=== PATIENT | female | born 1970 | race American Indian/Alaskan Native ===

== ENCOUNTER 2016-09-22 13:29 | Outpatient (CLI) | payer OTHER ==
--- NOTE | 2016-09-23 08:37 | Mammography Report ---
BILATERAL DIGITAL SCREENING MAMMOGRAM with CAD: 09/22/16 13:29:00 CLINICAL: Baseline screening. FINDINGS: The breasts are heterogeneously dense, which may obscure small masses. Left asymmetries with architectural distortion require additional imaging.No suspicious calcifications.The right breast is negative. IMPRESSION: Left asymmetry and architectural distortion requiring further workup. BI-RADS CATEGORY: 0 -- Additional Imaging Evaluation Required RECOMMENDATION: Recall for left mediolateral , spot compression CC and MLO views and left breast ultrasound if needed. ACR BI-RADS MAMMOGRAPHIC CODES: 0 = Needs additional imaging evaluation; 1 = Negative; 2 = Benign; 3 = Probably benign; 4 = Suspicious; 5 = Malignant; 6 = Known biopsy-proven malignancy COMMENT: 1. Dense breast tissue, i.e., adenosis, fibrocystic changes, etc., may obscure an underlying neoplasm. 2. Approximately 10% of cancers are not detected with mammography. 3. A negative mammography report should not delay biopsy if a clinically suspicious mass is present. COMMENT: Patient follow-up letters are generated via our [employer] application.
== END 2016-09-22 13:30 | disposition home or self-care (01) ==
LOC: SPVWC 13:29
PROVIDERS: ATTEND Internal Medicine Hematology & Oncology
DX: Z12.31 Encounter for screening mammogram for malignant neoplasm of breast (principal)
CPT/HCPCS: 77067; G0202

== ENCOUNTER 2016-10-05 11:12 | Outpatient (CLI) | payer OTHER ==
--- NOTE | 2016-10-05 14:22 | Ultrasound Report ---
LEFT DIGITAL DIAGNOSTIC MAMMOGRAM and LEFT BREAST ULTRASOUND: 10/05/16 11:12:00 CLINICAL: Recalled for left asymmetries and architectural distortion. COMPARISON:09/22/16 screening FINDINGS: ML and spot compression MLO and CC views were performed. Partial effacement of asymmetry and architectural distortion. No suspicious finding on the lateral view. Ultrasound of the left breast (including all four quadrants and the retroareolar area) was performed and demonstrated normal fibroglandular structures with focal fibroglandular structures in the upper outer quadrant corresponding to the mammographic asymmetry. No mass, cyst or shadowing. IMPRESSION: Probably benign mammographic asymmetry with negative ultrasound. BI-RADS CATEGORY: 3 - - Probably Benign RECOMMENDATION: Six month followup left mammogram and left breast ultrasound if needed. ACR BI-RADS MAMMOGRAPHIC CODES: 0 = Needs additional imaging evaluation; 1 = Negative; 2 = Benign; 3 = Probably benign; 4 = Suspicious; 5 = Malignant; 6 = Known biopsy-proven malignancy COMMENT: 1. Dense breast tissue, i.e., adenosis, fibrocystic changes, etc., may obscure an underlying neoplasm. 2. Approximately 10% of cancers are not detected with mammography. 3. A negative mammography report should not delay biopsy if a clinically suspicious mass is present. COMMENT: Patient follow-up letters are generated via our [employer] application.
== END 2016-10-05 11:13 | disposition home or self-care (01) ==
LOC: SPVWC 11:12
PROVIDERS: ATTEND Internal Medicine Hematology & Oncology
DX: N64.89 Other specified disorders of breast (principal)
CPT/HCPCS: 76641; G0206